=== PATIENT | female | born 1945 | race Caucasian/White ===

== ENCOUNTER 2020-03-06 14:46 | Observation (INO) ==
[2020-03-06] MEDS ORDERED: SODIUM CHLORIDE 0.9% 1,000 ML IV STA (15:19)
[2020-03-06 15:40] LABS: Basophils % 0.3 % (0.0-0.8); Eosinophils # 0.2 10*3/uL (0.0-0.87); Eosinophils % 2.4 % (0.00-10.9); Hemoglobin 12.3 GM/DL (12.0-16.0); Immature Granulocytes % 0.5 %; Immature Granulocytes Absolute 0.04 #; Lymphocytes # 1.1 10*3/uL (1.4-4.0); Lymphocytes % 12.2 % (21.3-54.2); Mean Corpuscular HGB Conc 32.4 GM/DL (32-36); Mean Platelet Volume 9.3 FL (9.6-12.0); Monocytes % 4.8 % (1.7-12.7); Neutrophils % 79.8 % (38.7-73.9); Platelet Count 332 T/CUMM (130-400); Red Blood Count 4.27 MC/CUMM (3.8-5.5); Red Cell Distribution Width 15.8 % (9.3-17.3); White Blood Count 8.9 T/CUMM (4-12)
[2020-03-06 16:10] LABS: Alanine Aminotransferase 9 U/L (13-56); Albumin 2.8 G/DL (3.4-5.0); Alkaline Phosphatase 100 U/L (45-117); Aspartate Amino Transferase 23 U/L (0-37); Bilirubin,Total < 0.39 MG/DL (0.2-1.0); Blood Urea Nitrogen 22 MG/DL (7-18); Calcium 8.6 MG/DL (8.5-10.1); Estimated Glom Filtration Rate 0 ML/MIN; Glucose 99 MG/DL (74-106); Osmolality,Calculated 279.5 MOS/KG (273-304); Total Protein 6.2 G/DL (6.4-8.3)
[2020-03-06] MEDS ORDERED: POTASSIUM CHLORIDE 20 MEQ TABLET PO STA (16:20)
[2020-03-06 16:21] LABS: Bilirubin,Urine Negative (Negative); Blood, Urine Moderate mg/dL (Negative); Glucose,Urine (UA) Negative (Negative); Ketones,Urine Negative (Negative); Mucus,Urine Occasional /LPF (Occasional); Nitrite,Urine Negative (Negative); Protein,Urine Negative; RBC,Urine 54 /HPF (0-4); Urine Appearance CLEAR (Clear); Urine Color Yellow (Yellow); Urine Specific Gravity 1.011 (1.001-1.035); Urine Urobilinogen < 2.0 EU/DL (0.2-1.0); WBC,Urine 2 /HPF (0-6)
[2020-03-06 18:05] LABS: Barbiturates Screen,Urine Negative (Negative); Benzodiazepines Screen,Urine Negative (Negative); Cannabinoid Screen,Urine Negative (Negative); Opiate Screen,Urine Positive (Negative); Phencyclidine Screen,Urine Negative (Negative)
[2020-03-06 18:07] LABS: Alcohol Patient Result Negative (Negative)
[2020-03-06 18:25] LABS: Creatinine Ur Quant Random 57 MG/DL; Microalbum Ur Quant Random 18.5 MG/L (0-20); Microalbum/Creat Ratio Random 32.5 RATIO (0-30); Potassium,Urine Random 8 MMOL/L
[2020-03-06 18:30] LABS: Calcium,Urine Random < 5 MG/DL
[2020-03-06] MEDS: PANTOPRAZOLE 40 MG TABLET PO SCH (20:49)
[2020-03-06] MEDS: oxyCODONE/ACETAMINOPHEN 5-325 MG TABLET PO PRN (20:49)
[2020-03-06] MEDS: SODIUM CHLORIDE 23.4% CONC INJ 38.5 MEQ, SODIUM BICARB INJ 50 MEQ in STERILE WATER INJ ... IV SCH (20:50)
[2020-03-06] MEDS: MEGESTROL 400 MG/10 ML UDCUP PO SCH (20:51)
[2020-03-07] MEDS: ONDANSETRON 4 MG TABLET PO PRN (02:34)
[2020-03-07] MEDS: oxyCODONE/ACETAMINOPHEN 5-325 MG TABLET PO PRN ×4 (03:28→20:51)
[2020-03-07 06:20] LABS: Alanine Aminotransferase < 6 U/L (13-56); Albumin 2.6 G/DL (3.4-5.0); Alkaline Phosphatase 104 U/L (45-117); Aspartate Amino Transferase 34 U/L (0-37); Bilirubin,Total < 0.39 MG/DL (0.2-1.0); Blood Urea Nitrogen 19 MG/DL (7-18); Calcium 8.4 MG/DL (8.5-10.1); Estimated Glom Filtration Rate 17 ML/MIN; Glucose 104 MG/DL (74-106); Osmolality,Calculated 278.5 MOS/KG (273-304); Total Protein 7.1 G/DL (6.4-8.3)
[2020-03-07 06:28] LABS: Basophils % 0.2 % (0.0-0.8); Eosinophils # 0.3 10*3/uL (0.0-0.87); Eosinophils % 3.5 % (0.00-10.9); Hematocrit 39.8 VOL% (35.7-47.0); Immature Granulocytes % 0.3 %; Immature Granulocytes Absolute 0.03 #; Lymphocytes # 1.1 10*3/uL (1.4-4.0); Lymphocytes % 12.8 % (21.3-54.2); Mean Corpuscular HGB Conc 32.7 GM/DL (32-36); Mean Corpuscular Volume 88.8 FL (87-102); Mean Platelet Volume 10.1 FL (9.6-12.0); Monocytes % 5.3 % (1.7-12.7); Neutrophils % 77.9 % (38.7-73.9); Platelet Count 305 T/CUMM (130-400); Red Blood Count 4.48 MC/CUMM (3.8-5.5); Red Cell Distribution Width 15.8 % (9.3-17.3); White Blood Count 8.7 T/CUMM (4-12)
[2020-03-07 06:44] LABS: Hypochromasia Slight; Platelet Estimate Normal
[2020-03-07] MEDS: MEGESTROL 400 MG/10 ML UDCUP PO SCH ×2 (08:18→20:51)
[2020-03-07] MEDS: DOCUSATE SODIUM 100 MG CAPSULE PO SCH (08:18)
[2020-03-07] MEDS: PANTOPRAZOLE 40 MG TABLET PO SCH ×2 (08:18→20:51)
[2020-03-07] MEDS: SERTRALINE 100 MG TABLET PO SCH (08:18)
[2020-03-07] MEDS: SODIUM CHLORIDE 23.4% CONC INJ 38.5 MEQ, SODIUM BICARB INJ 50 MEQ in STERILE WATER INJ ... IV SCH (09:47)
[2020-03-07] MEDS: TAMSULOSIN 0.4 MG CAPSULE PO SCH ×2 (12:35→20:51)
[2020-03-07] MEDS: ZOLPIDEM 5 MG TABLET PO PRN (20:52)
[2020-03-07] MEDS ORDERED: TAMSULOSIN 0.4 MG CAPSULE PO SCH (21:00)
[2020-03-08] MEDS: SODIUM CHLORIDE 23.4% CONC INJ 38.5 MEQ, SODIUM BICARB INJ 50 MEQ in STERILE WATER INJ ... IV SCH (02:47)
[2020-03-08] MEDS: oxyCODONE/ACETAMINOPHEN 5-325 MG TABLET PO PRN ×3 (05:02→17:14)
[2020-03-08 05:18] LABS: Basophils % 0.1 % (0.0-0.8); Eosinophils # 0.2 10*3/uL (0.0-0.87); Eosinophils % 2.3 % (0.00-10.9); Hematocrit 34.9 VOL% (35.7-47.0); Hemoglobin 11.4 GM/DL (12.0-16.0); Immature Granulocytes % 0.4 %; Immature Granulocytes Absolute 0.03 #; Lymphocytes # 0.9 10*3/uL (1.4-4.0); Lymphocytes % 11.6 % (21.3-54.2); Mean Corpuscular HGB Conc 32.7 GM/DL (32-36); Mean Corpuscular Volume 86.6 FL (87-102); Mean Platelet Volume 9.3 FL (9.6-12.0); Monocytes % 6.4 % (1.7-12.7); Neutrophils % 79.2 % (38.7-73.9); Platelet Count 226 T/CUMM (130-400); Red Blood Count 4.03 MC/CUMM (3.8-5.5); Red Cell Distribution Width 15.3 % (9.3-17.3); White Blood Count 7.8 T/CUMM (4-12)
[2020-03-08 06:02] LABS: Alanine Aminotransferase < 6 U/L (13-56); Albumin 2.6 G/DL (3.4-5.0); Alkaline Phosphatase 101 U/L (45-117); Aspartate Amino Transferase 20 U/L (0-37); Bilirubin,Total < 0.39 MG/DL (0.2-1.0); Blood Urea Nitrogen 10 MG/DL (7-18); Calcium 8.4 MG/DL (8.5-10.1); Estimated Glom Filtration Rate 23 ML/MIN; Glucose 93 MG/DL (74-106); Osmolality,Calculated 284.8 MOS/KG (273-304); Total Protein 6.5 G/DL (6.4-8.3)
[2020-03-08] MEDS: PANTOPRAZOLE 40 MG TABLET PO SCH ×2 (08:35→21:33)
[2020-03-08] MEDS: MULTIVITAMIN (CENTRUM) TABLET PO SCH (08:35)
[2020-03-08] MEDS: DOCUSATE SODIUM 100 MG CAPSULE PO SCH (08:35)
[2020-03-08] MEDS: MEGESTROL 400 MG/10 ML UDCUP PO SCH ×2 (08:35→21:33)
[2020-03-08] MEDS: TAMSULOSIN 0.4 MG CAPSULE PO SCH ×2 (08:35→21:33)
[2020-03-08] MEDS: SERTRALINE 100 MG TABLET PO SCH (08:35)
[2020-03-08] MEDS ORDERED: POTASSIUM CHLORIDE 20 MEQ TABLET PO SCH (09:00)
[2020-03-08] MEDS ORDERED: SODIUM PHOSPHATE INJ 30 MMOL in SODIUM CHLORIDE 0.9% 250 ML IV ONE (10:00)
[2020-03-08] MEDS ORDERED: POTASSIUM CHLORIDE RIDER 10 MEQ in PREMIX 1 EACH IV PRN (10:42)
[2020-03-08] MEDS: ONDANSETRON 4 MG TABLET PO PRN (11:24)
[2020-03-08] MEDS ORDERED: POTASSIUM BICARB EFFERVESCENT 25 MEQ TABLET PO ONE (13:24)
[2020-03-08] MEDS: SODIUM CHLOR 0.9% KCL 40 MEQ 40 MEQ/1,000 ML BAG IV SCH (14:37)
[2020-03-08] MEDS: ZOLPIDEM 5 MG TABLET PO PRN (21:33)
[2020-03-09] MEDS: SODIUM CHLOR 0.9% KCL 40 MEQ 40 MEQ/1,000 ML BAG IV SCH (04:39)
[2020-03-09 05:43] LABS: Basophils % 0.3 % (0.0-0.8); Eosinophils # 0.1 10*3/uL (0.0-0.87); Eosinophils % 1.9 % (0.00-10.9); Hematocrit 35.1 VOL% (35.7-47.0); Hemoglobin 11.5 GM/DL (12.0-16.0); Immature Granulocytes % 0.8 %; Immature Granulocytes Absolute 0.05 #; Lymphocytes # 0.8 10*3/uL (1.4-4.0); Lymphocytes % 12.2 % (21.3-54.2); Mean Corpuscular HGB Conc 32.8 GM/DL (32-36); Mean Corpuscular Volume 87.8 FL (87-102); Mean Platelet Volume 9.3 FL (9.6-12.0); Monocytes % 8.2 % (1.7-12.7); Neutrophils % 76.6 % (38.7-73.9); Platelet Count 204 T/CUMM (130-400); Red Cell Distribution Width 15.8 % (9.3-17.3); White Blood Count 6.5 T/CUMM (4-12)
[2020-03-09 06:42] LABS: Alanine Aminotransferase < 6 U/L (13-56); Albumin 2.5 G/DL (3.4-5.0); Alkaline Phosphatase 97 U/L (45-117); Aspartate Amino Transferase 18 U/L (0-37); Blood Urea Nitrogen 8 MG/DL (7-18); Calcium 8.1 MG/DL (8.5-10.1); Estimated Glom Filtration Rate 30 ML/MIN; Glucose 90 MG/DL (74-106); Osmolality,Calculated 285.7 MOS/KG (273-304); Total Protein 6.4 G/DL (6.4-8.3)
[2020-03-09] MEDS ORDERED: POTASSIUM CHLORIDE 20 MEQ TABLET PO ONE (07:04)
[2020-03-09] MEDS ORDERED: oxyCODONE/ACETAMINOPHEN 5-325 MG TABLET PO PRN (07:15)
[2020-03-09] MEDS ORDERED: POTASSIUM PHOS/SOD PHOS 250 MG TABLET PO SCH (08:00)
[2020-03-09] MEDS ORDERED: SODIUM PHOSPHATE ENEMA 133 ML BOTTLE RECTAL ONE ×2 (08:44→09:15)
[2020-03-09] MEDS ORDERED: BETHANECHOL 10 MG TABLET PO SCH (09:00)
[2020-03-09] MEDS ORDERED: amLODIPine 5 MG TABLET PO SCH (09:00)
[2020-03-09 09:11] LABS: Bacteria,Urine Moderate /HPF (Few); Bilirubin,Urine Negative (Negative); Blood, Urine Small mg/dL (Negative); Glucose,Urine (UA) Negative (Negative); Ketones,Urine Negative (Negative); Mucus,Urine Occasional /LPF (Occasional); Nitrite,Urine Negative (Negative); Protein,Urine Negative; RBC,Urine 1 /HPF (0-4); Squamous Epithelial Cell,Urine Occasional /HPF (0-10); Urine Appearance CLEAR (Clear); Urine Color Colorless (Yellow); Urine Specific Gravity 1.005 (1.001-1.035); Urine Urobilinogen < 2.0 EU/DL (0.2-1.0); WBC,Urine 2 /HPF (0-6)
[2020-03-09] MEDS ORDERED: MAGNESIUM HYDROXIDE SUSP 30 ML UDCUP PO ONE (09:13)
[2020-03-09] MEDS: MEGESTROL 400 MG/10 ML UDCUP PO SCH (09:55)
[2020-03-09] MEDS: TAMSULOSIN 0.4 MG CAPSULE PO SCH (09:55)
[2020-03-09] MEDS: MULTIVITAMIN (CENTRUM) TABLET PO SCH (09:55)
[2020-03-09] MEDS: DOCUSATE SODIUM 100 MG CAPSULE PO SCH (09:55)
[2020-03-09] MEDS: SERTRALINE 100 MG TABLET PO SCH (09:55)
[2020-03-09] MEDS: PANTOPRAZOLE 40 MG TABLET PO SCH (09:55)
[2020-03-09] MEDS ORDERED: SUMAtriptan 6 MG/0.5 ML VIAL SUBCUT ONE (10:22)
[2020-03-09 11:58] VITALS: BP 144/80
== END 2020-03-09 15:17 | disposition home health service (06) ==
LOC: EDBD → EDUNIT# → N.ED 14:46 → N.EDINP 14:46 → N.TELEN 18:40
PROVIDERS: ADMIT Internal Medicine; ATTEND Internal Medicine

== ENCOUNTER 2021-04-07 23:35 | Observation (INO) ==
[2021-04-08] MEDS ORDERED: SODIUM CHLORIDE 0.9% 1,000 ML IV STA (01:40)
[2021-04-08 02:56] LABS: Basophils % 0.3 % (0.0-0.8); Eosinophils # 0.2 10*3/uL (0.0-0.87); Hematocrit 36.8 VOL% (35.7-47.0); Hemoglobin 11.4 GM/DL (12.0-16.0); Immature Granulocytes % 0.3 %; Immature Granulocytes Absolute 0.02 #; Mean Corpuscular Volume 92.9 FL (87-102); Mean Platelet Volume 10.2 FL (9.6-12.0); Monocytes % 8.2 % (1.7-12.7); Neutrophils % 57.2 % (38.7-73.9); Platelet Count 220 T/CUMM (130-400); Red Blood Count 3.96 MC/CUMM (3.8-5.5); Red Cell Distribution Width 14.2 % (9.3-17.3); White Blood Count 6.3 T/CUMM (4-12)
[2021-04-08 03:12] LABS: Acetaminophen 2.4 UG/ML (10-30); Salicylate < 2.8 MG/DL (2.8-20)
[2021-04-08 03:16] LABS: Alanine Aminotransferase < 6 U/L (13-56); Albumin 3.5 G/DL (3.4-5.0); Alkaline Phosphatase 69 U/L (45-117); Aspartate Amino Transferase 13 U/L (0-37); Bilirubin,Total < 0.39 MG/DL (0.20-1.00); Blood Urea Nitrogen 33 MG/DL (7-18); Calcium 8.9 MG/DL (8.5-10.1); Carbon Dioxide 24 MMOL/L (21-32); Estimated Glom Filtration Rate 15 ML/MIN; Glucose 110 MG/DL (74-106); Osmolality,Calculated 282.7 MOS/KG (273-304); Potassium 3.9 MMOL/L (3.5-5.1); Sodium 138 MMOL/L (136-145); Total Protein 6.7 G/DL (6.4-8.2)
[2021-04-08] MEDS ORDERED: ACETAMINOPHEN 325 MG TABLET PO ONE (04:01)
[2021-04-08] MEDS ORDERED: ACETAMINOPHEN 325 MG TABLET PO PRN (04:07)
[2021-04-08] MEDS ORDERED: ONDANSETRON 4 MG/2 ML VIAL IV PRN (04:07)
[2021-04-08] MEDS ORDERED: ENOXAPARIN 30 MG/0.3 ML SYRINGE SUBCUT SCH (05:00)
[2021-04-08 06:51] LABS: Barbiturates Screen,Urine Negative (Negative); Benzodiazepines Screen,Urine Negative (Negative); Bilirubin,Urine Negative (Negative); Blood, Urine Moderate mg/dL (Negative); Cannabinoid Screen,Urine Negative (Negative); Glucose,Urine (UA) Negative (Negative); Hyaline Casts,Urine 1 /LPF (0-3); Ketones,Urine Negative (Negative); Mucus,Urine Occasional /LPF (Occasional); Nitrite,Urine Negative (Negative); Opiate Screen,Urine Positive (Negative); Phencyclidine Screen,Urine Negative (Negative); Protein,Urine Negative; RBC,Urine 22 /HPF (0-4); Squamous Epithelial Cell,Urine Occasional /HPF (0-10); Urine Appearance Slightly Hazy (Clear); Urine Color Yellow (Yellow); Urine Specific Gravity 1.009 (1.001-1.035); Urine Urobilinogen < 2.0 EU/DL (<2.0)
[2021-04-08] MEDS: ENOXAPARIN 30 MG/0.3 ML SYRINGE SUBCUT SCH (08:50)
[2021-04-08] MEDS ORDERED: PANTOPRAZOLE 40 MG TABLET PO SCH (09:00)
[2021-04-08] MEDS ORDERED: DOCUSATE SODIUM 100 MG CAPSULE PO PRN (11:04)
[2021-04-08] MEDS ORDERED: QUEtiapine 25 MG TABLET PO SCH ×3 (11:30→21:00)
[2021-04-08] MEDS: oxyCODONE/ACETAMINOPHEN 5-325 MG TABLET PO PRN ×2 (12:09→20:11)
[2021-04-08] MEDS: ERYTHROMYCIN 0.5% OPHT OINT 3.5 GM TUBE RIGHT EYE SCH ×7 (12:10→23:45)
[2021-04-08] MEDS ORDERED: hydrALAZINE 20 MG/1 ML VIAL IV PRN (16:15)
[2021-04-08] MEDS ORDERED: HALOPERIDOL 5 MG/ML AMP IM ONE (16:18)
[2021-04-08] MEDS: PANTOPRAZOLE 40 MG TABLET PO SCH (16:35)
[2021-04-08] MEDS ORDERED: ZALEPLON 5 MG CAPSULE PO PRN (18:24)
[2021-04-08] MEDS ORDERED: LORazepam 2 MG/1 ML VIAL IV PRN (21:50)
[2021-04-09] MEDS: ERYTHROMYCIN 0.5% OPHT OINT 3.5 GM TUBE RIGHT EYE SCH ×8 (01:16→14:58)
[2021-04-09] MEDS: oxyCODONE/ACETAMINOPHEN 5-325 MG TABLET PO PRN ×2 (01:56→13:51)
[2021-04-09 05:50] LABS: Calcium 9.1 MG/DL (8.5-10.1); Osmolality,Calculated 292.6 MOS/KG (273-304); Potassium 3.9 MMOL/L (3.5-5.1)
[2021-04-09] MEDS: ENOXAPARIN 30 MG/0.3 ML SYRINGE SUBCUT SCH (08:28)
[2021-04-09] MEDS: PANTOPRAZOLE 40 MG TABLET PO SCH (08:28)
[2021-04-09] MEDS ORDERED: SERTRALINE 100 MG TABLET PO SCH (09:00)
[2021-04-09] MEDS ORDERED: QUEtiapine 25 MG TABLET PO SCH (09:00)
[2021-04-09] MEDS ORDERED: SODIUM CHLORIDE 0.9% 1,000 ML IV SCH (12:00)
[2021-04-09 12:38] VITALS: BP 135/72
== END 2021-04-09 16:35 ==
LOC: N.EDINP 23:35 → N.ED 23:35 → N.EDINP 04-08 05:40 → N.3E 04-08 06:59 → SUATTDRO 04-08 12:41
PROVIDERS: ADMIT Internal Medicine; ATTEND Internal Medicine

== ENCOUNTER 2021-04-15 09:06 | Inpatient (IN) ==
[2021-04-15] MEDS ORDERED: SODIUM CHLORIDE 0.9% 1,000 ML IV STA (09:45)
[2021-04-15 10:57] LABS: Basophils % 0.3 % (0.0-0.8); Eosinophils # 0.1 10*3/uL (0.0-0.87); Eosinophils % 0.9 % (0.00-10.9); Hematocrit 49.7 VOL% (35.7-47.0); Hemoglobin 15.4 GM/DL (12.0-16.0); Immature Granulocytes % 0.3 %; Immature Granulocytes Absolute 0.03 #; Lymphocytes # 1.2 10*3/uL (1.4-4.0); Lymphocytes % 12.9 % (21.3-54.2); Mean Corpuscular Volume 91.4 FL (87-102); Mean Platelet Volume 9.8 FL (9.6-12.0); Monocytes % 4.2 % (1.7-12.7); Neutrophils % 81.4 % (38.7-73.9); Platelet Count 294 T/CUMM (130-400); Red Blood Count 5.44 MC/CUMM (3.8-5.5); Red Cell Distribution Width 14.3 % (9.3-17.3); White Blood Count 8.9 T/CUMM (4-12)
[2021-04-15 11:21] LABS: Alanine Aminotransferase 13 U/L (13-56); Albumin 4.3 G/DL (3.4-5.0); Alkaline Phosphatase 79 U/L (45-117); Aspartate Amino Transferase 22 U/L (0-37); Bilirubin,Total < 0.39 MG/DL (0.20-1.00); Blood Urea Nitrogen 28 MG/DL (7-18); Calcium 10.3 MG/DL (8.5-10.1); Carbon Dioxide 24 MMOL/L (21-32); Estimated Glom Filtration Rate 23 ML/MIN; Glucose 107 MG/DL (74-106); Osmolality,Calculated 297.4 MOS/KG (273-304); Potassium 3.7 MMOL/L (3.5-5.1); Sodium 147 MMOL/L (136-145); Total Protein 9.1 G/DL (6.4-8.2)
[2021-04-15 11:58] LABS: Bilirubin,Urine Negative (Negative); Blood, Urine Large mg/dL (Negative); Glucose,Urine (UA) Negative (Negative); Ketones,Urine Negative (Negative); Mucus,Urine Occasional /LPF (Occasional); Nitrite,Urine Negative (Negative); Protein,Urine 30 MG/DL; RBC,Urine 283 /HPF (0-4); Urine Appearance CLEAR (Clear); Urine Color Yellow (Yellow); Urine Specific Gravity 1.011 (1.001-1.035); Urine Urobilinogen < 2.0 EU/DL (<2.0)
[2021-04-15 12:43] LABS: Barbiturates Screen,Urine Negative (Negative); Benzodiazepines Screen,Urine Negative (Negative); Cannabinoid Screen,Urine Negative (Negative); Opiate Screen,Urine Negative (Negative); Phencyclidine Screen,Urine Negative (Negative)
[2021-04-15] MEDS ORDERED: GLUCAGON 1 MG VIAL IM PRN (13:18)
[2021-04-15] MEDS ORDERED: DEXTROSE 50% 25 GM/50 ML SYRINGE IV PRN (13:18)
[2021-04-15] MEDS: ENOXAPARIN 30 MG/0.3 ML SYRINGE SUBCUT SCH (14:25)
[2021-04-15] MEDS: DEXTROSE 5% 1,000 ML IV SCH (14:30)
[2021-04-15 14:42] LABS: Thyroid Stimulating Hormone 1.42 uIU/ml (0.358-3.74)
[2021-04-15] MEDS: hydrALAZINE 20 MG/1 ML VIAL IV PRN (21:13)
[2021-04-16] MEDS: DEXTROSE 5% 1,000 ML IV SCH ×2 (04:01→14:33)
[2021-04-16 06:37] LABS: Calcium 9.9 MG/DL (8.5-10.1); Osmolality,Calculated 291.6 MOS/KG (273-304); Potassium 3.2 MMOL/L (3.5-5.1)
[2021-04-16] MEDS ORDERED: POTASSIUM CHLORIDE RIDER 10 MEQ/100 ML PREMIX IV PRN (08:31)
[2021-04-16] MEDS: PANTOPRAZOLE 40 MG VIAL IV SCH (08:35)
[2021-04-16] MEDS ORDERED: NON-FORMULARY MEDICATION (Oxycodone-Acetaminophen [Percocet] 10-325 mg Tablet) PO PRN (11:44)
[2021-04-16] MEDS ORDERED: DOCUSATE SODIUM 100 MG CAPSULE PO PRN (12:01)
[2021-04-16] MEDS: MEMANTINE 5 MG TABLET PO SCH ×2 (12:17→20:21)
[2021-04-16] MEDS: SERTRALINE 100 MG TABLET PO SCH (12:17)
[2021-04-16] MEDS: RIVASTIGMINE 4.6 MG/24 HR PATCH TRANSDERM SCH (12:17)
[2021-04-16] MEDS: BACLOFEN 10 MG TABLET PO SCH ×2 (14:34→20:21)
[2021-04-16] MEDS: QUEtiapine 25 MG TABLET PO SCH (20:21)
[2021-04-16] MEDS: ENOXAPARIN 30 MG/0.3 ML SYRINGE SUBCUT SCH (20:21)
[2021-04-17 05:04] LABS: Basophils % 0.2 % (0.0-0.8); Eosinophils # 0.2 10*3/uL (0.0-0.87); Eosinophils % 1.9 % (0.00-10.9); Hematocrit 42.1 VOL% (35.7-47.0); Hemoglobin 13.1 GM/DL (12.0-16.0); Immature Granulocytes % 0.4 %; Immature Granulocytes Absolute 0.05 #; Lymphocytes # 1.6 10*3/uL (1.4-4.0); Lymphocytes % 13.5 % (21.3-54.2); Mean Corpuscular HGB Conc 31.1 GM/DL (32-36); Monocytes % 6.2 % (1.7-12.7); Neutrophils % 77.8 % (38.7-73.9); Platelet Count 284 T/CUMM (130-400); Red Blood Count 4.48 MC/CUMM (3.8-5.5); Red Cell Distribution Width 14.1 % (9.3-17.3); White Blood Count 11.8 T/CUMM (4-12)
[2021-04-17 05:20] LABS: Calcium 9.7 MG/DL (8.5-10.1); Osmolality,Calculated 287.8 MOS/KG (273-304); Potassium 3.5 MMOL/L (3.5-5.1)
[2021-04-17] MEDS: DEXTROSE 5% 1,000 ML IV SCH ×2 (07:26→16:36)
[2021-04-17] MEDS: MEGESTROL 40 MG TABLET PO SCH ×2 (09:22→21:15)
[2021-04-17] MEDS: MEMANTINE 5 MG TABLET PO SCH ×2 (09:22→21:14)
[2021-04-17] MEDS: BACLOFEN 10 MG TABLET PO SCH ×3 (09:22→21:14)
[2021-04-17] MEDS: SERTRALINE 100 MG TABLET PO SCH (09:22)
[2021-04-17] MEDS: PANTOPRAZOLE 40 MG VIAL IV SCH (09:26)
[2021-04-17] MEDS: RIVASTIGMINE 4.6 MG/24 HR PATCH TRANSDERM SCH (09:30)
[2021-04-17] MEDS: QUEtiapine 25 MG TABLET PO SCH (21:14)
[2021-04-17] MEDS: ENOXAPARIN 30 MG/0.3 ML SYRINGE SUBCUT SCH (21:15)
[2021-04-17] MEDS: ONDANSETRON 4 MG TABLET PO PRN (21:28)
[2021-04-18] MEDS: ACETAMINOPHEN 500 MG TABLET PO PRN ×2 (02:15→15:19)
[2021-04-18] MEDS: DEXTROSE 5% 1,000 ML IV SCH ×3 (02:18→22:12)
[2021-04-18 06:20] LABS: Basophils % 0.1 % (0.0-0.8); Eosinophils # 0.2 10*3/uL (0.0-0.87); Eosinophils % 1.7 % (0.00-10.9); Hematocrit 38.7 VOL% (35.7-47.0); Hemoglobin 12.5 GM/DL (12.0-16.0); Immature Granulocytes % 0.4 %; Immature Granulocytes Absolute 0.04 #; Lymphocytes # 1.2 10*3/uL (1.4-4.0); Lymphocytes % 11.8 % (21.3-54.2); Mean Corpuscular HGB Conc 32.3 GM/DL (32-36); Mean Corpuscular Volume 91.7 FL (87-102); Monocytes % 6.8 % (1.7-12.7); Neutrophils % 79.2 % (38.7-73.9); Platelet Count 216 T/CUMM (130-400); Red Blood Count 4.22 MC/CUMM (3.8-5.5); Red Cell Distribution Width 13.9 % (9.3-17.3); White Blood Count 9.9 T/CUMM (4-12)
[2021-04-18 06:43] LABS: Calcium 9.3 MG/DL (8.5-10.1); Osmolality,Calculated 286.1 MOS/KG (273-304); Potassium 2.7 MMOL/L (3.5-5.1)
[2021-04-18] MEDS: MEGESTROL 40 MG TABLET PO SCH ×2 (09:54→22:04)
[2021-04-18] MEDS: RIVASTIGMINE 4.6 MG/24 HR PATCH TRANSDERM SCH (09:54)
[2021-04-18] MEDS: BACLOFEN 10 MG TABLET PO SCH ×3 (09:54→22:05)
[2021-04-18] MEDS: POTASSIUM CHLORIDE 20 MEQ TABLET PO PRN ×3 (09:55→15:13)
[2021-04-18] MEDS: SERTRALINE 100 MG TABLET PO SCH (09:56)
[2021-04-18] MEDS: traMADol 50 MG TABLET PO PRN ×2 (09:56→18:59)
[2021-04-18] MEDS: MEMANTINE 5 MG TABLET PO SCH ×2 (09:56→22:05)
[2021-04-18] MEDS: PANTOPRAZOLE 40 MG VIAL IV SCH (10:02)
[2021-04-18] MEDS: hydrALAZINE 20 MG/1 ML VIAL IV PRN (12:21)
[2021-04-18] MEDS: ONDANSETRON 4 MG TABLET PO PRN (15:13)
[2021-04-18] MEDS: QUEtiapine 25 MG TABLET PO SCH (22:04)
[2021-04-18] MEDS: ENOXAPARIN 30 MG/0.3 ML SYRINGE SUBCUT SCH (22:05)
[2021-04-19 05:57] LABS: Calcium 9.1 MG/DL (8.5-10.1); Potassium 3.7 MMOL/L (3.5-5.1)
[2021-04-19] MEDS: DEXTROSE 5% 1,000 ML IV SCH ×2 (10:50→21:39)
[2021-04-19] MEDS: PANTOPRAZOLE 40 MG VIAL IV SCH (10:54)
[2021-04-19] MEDS: SERTRALINE 100 MG TABLET PO SCH (10:55)
[2021-04-19] MEDS: MEGESTROL 40 MG TABLET PO SCH ×2 (10:55→21:33)
[2021-04-19] MEDS: RIVASTIGMINE 4.6 MG/24 HR PATCH TRANSDERM SCH (10:55)
[2021-04-19] MEDS: BACLOFEN 10 MG TABLET PO SCH ×3 (10:56→21:36)
[2021-04-19] MEDS: MEMANTINE 5 MG TABLET PO SCH ×2 (10:56→21:34)
[2021-04-19] MEDS: ENOXAPARIN 30 MG/0.3 ML SYRINGE SUBCUT SCH (21:33)
[2021-04-19] MEDS: QUEtiapine 25 MG TABLET PO SCH (21:34)
[2021-04-19] MEDS: ACETAMINOPHEN 500 MG TABLET PO PRN (21:34)
[2021-04-20 06:56] LABS: Calcium 9.7 MG/DL (8.5-10.1); Osmolality,Calculated 285.1 MOS/KG (273-304); Potassium 3.3 MMOL/L (3.5-5.1)
[2021-04-20] MEDS: DEXTROSE 5% 1,000 ML IV SCH ×2 (07:50→13:11)
[2021-04-20] MEDS: PANTOPRAZOLE 40 MG VIAL IV SCH (09:19)
[2021-04-20] MEDS: POTASSIUM CHLORIDE 20 MEQ PACK PO ONE ×2 (09:19→10:18)
[2021-04-20] MEDS: MEMANTINE 5 MG TABLET PO SCH ×3 (09:20→20:38)
[2021-04-20] MEDS: BACLOFEN 10 MG TABLET PO SCH ×4 (09:20→20:38)
[2021-04-20] MEDS: RIVASTIGMINE 4.6 MG/24 HR PATCH TRANSDERM SCH (09:20)
[2021-04-20] MEDS: MEGESTROL 40 MG TABLET PO SCH ×3 (09:20→20:39)
[2021-04-20] MEDS: SERTRALINE 100 MG TABLET PO SCH ×2 (09:21→10:10)
[2021-04-20 11:00] LABS: Basophils % 0.1 % (0.0-0.8); Eosinophils # 0.2 10*3/uL (0.0-0.87); Eosinophils % 2.2 % (0.00-10.9); Hematocrit 38.2 VOL% (35.7-47.0); Hemoglobin 12.1 GM/DL (12.0-16.0); Immature Granulocytes % 0.6 %; Immature Granulocytes Absolute 0.04 #; Lymphocytes % 14.1 % (21.3-54.2); Mean Corpuscular HGB Conc 31.7 GM/DL (32-36); Mean Corpuscular Volume 91.6 FL (87-102); Mean Platelet Volume 9.9 FL (9.6-12.0); Platelet Count 277 T/CUMM (130-400); Red Blood Count 4.17 MC/CUMM (3.8-5.5); Red Cell Distribution Width 13.6 % (9.3-17.3); White Blood Count 7.3 T/CUMM (4-12)
[2021-04-20] MEDS: POTASSIUM CHLORIDE RIDER 10 MEQ/100 ML PREMIX IV PRN ×4 (11:53→17:06)
[2021-04-20] MEDS ORDERED: CARBOXYMETHYLCELLULOSE 1% OPH SOLN BOTH EYES PRN (11:54)
[2021-04-20] MEDS: AZITHROMYCIN 1% RIGHT EYE SCH ×2 (14:25→21:05)
[2021-04-20] MEDS: ENOXAPARIN 30 MG/0.3 ML SYRINGE SUBCUT SCH (20:38)
[2021-04-20] MEDS: ACETAMINOPHEN 500 MG TABLET PO PRN (20:38)
[2021-04-20] MEDS: QUEtiapine 25 MG TABLET PO SCH (21:05)
[2021-04-21 06:36] LABS: Basophils % 0.1 % (0.0-0.8); Eosinophils # 0.1 10*3/uL (0.0-0.87); Eosinophils % 1.1 % (0.00-10.9); Hematocrit 41.3 VOL% (35.7-47.0); Immature Granulocytes % 0.5 %; Immature Granulocytes Absolute 0.05 #; Lymphocytes % 11.1 % (21.3-54.2); Mean Corpuscular HGB Conc 31.5 GM/DL (32-36); Mean Corpuscular Volume 91.6 FL (87-102); Mean Platelet Volume 10.1 FL (9.6-12.0); Monocytes % 6.4 % (1.7-12.7); Neutrophils % 80.8 % (38.7-73.9); Platelet Count 324 T/CUMM (130-400); Red Blood Count 4.51 MC/CUMM (3.8-5.5); Red Cell Distribution Width 13.4 % (9.3-17.3); White Blood Count 9.4 T/CUMM (4-12)
[2021-04-21 06:51] LABS: Calcium 9.7 MG/DL (8.5-10.1); Osmolality,Calculated 285.3 MOS/KG (273-304); Potassium 3.4 MMOL/L (3.5-5.1)
[2021-04-21] MEDS: AZITHROMYCIN 1% RIGHT EYE SCH ×4 (07:31→22:23)
[2021-04-21] MEDS: PANTOPRAZOLE 40 MG VIAL IV SCH (08:14)
[2021-04-21] MEDS: MEMANTINE 5 MG TABLET PO SCH ×2 (08:15→20:43)
[2021-04-21] MEDS: POTASSIUM CHLORIDE 20 MEQ TABLET PO PRN ×3 (08:15→12:28)
[2021-04-21] MEDS: RIVASTIGMINE 4.6 MG/24 HR PATCH TRANSDERM SCH (08:15)
[2021-04-21] MEDS: SERTRALINE 100 MG TABLET PO SCH (08:16)
[2021-04-21] MEDS: MEGESTROL 40 MG TABLET PO SCH ×2 (08:16→20:43)
[2021-04-21] MEDS: BACLOFEN 10 MG TABLET PO SCH ×3 (08:16→20:43)
[2021-04-21] MEDS: DEXTROSE 5% 1,000 ML IV SCH ×3 (08:35→20:45)
[2021-04-21] MEDS: ENOXAPARIN 30 MG/0.3 ML SYRINGE SUBCUT SCH (20:43)
[2021-04-21] MEDS: traMADol 50 MG TABLET PO PRN (20:44)
[2021-04-21] MEDS: QUEtiapine 25 MG TABLET PO SCH (20:46)
[2021-04-22] MEDS: traMADol 50 MG TABLET PO PRN (04:09)
[2021-04-22 05:49] LABS: Basophils % 0.1 % (0.0-0.8); Eosinophils # 0.2 10*3/uL (0.0-0.87); Eosinophils % 2.8 % (0.00-10.9); Hematocrit 34.9 VOL% (35.7-47.0); Immature Granulocytes % 0.3 %; Immature Granulocytes Absolute 0.02 #; Lymphocytes # 1.6 10*3/uL (1.4-4.0); Lymphocytes % 22.4 % (21.3-54.2); Mean Corpuscular HGB Conc 31.5 GM/DL (32-36); Mean Corpuscular Volume 91.4 FL (87-102); Mean Platelet Volume 10.1 FL (9.6-12.0); Monocytes % 7.1 % (1.7-12.7); Neutrophils % 67.3 % (38.7-73.9); Platelet Count 259 T/CUMM (130-400); Red Blood Count 3.82 MC/CUMM (3.8-5.5); Red Cell Distribution Width 13.2 % (9.3-17.3); White Blood Count 7.2 T/CUMM (4-12)
[2021-04-22 06:06] LABS: Calcium 9.2 MG/DL (8.5-10.1); Osmolality,Calculated 281.4 MOS/KG (273-304); Potassium 3.8 MMOL/L (3.5-5.1)
[2021-04-22] MEDS: DEXTROSE 5% 1,000 ML IV SCH (06:45)
[2021-04-22] MEDS ORDERED: ERYTHROMYCIN 0.5% OPHT OINT 3.5 GM TUBE RIGHT EYE SCH (10:00)
[2021-04-22] MEDS ORDERED: CARBOXYMETHYLCELLULOSE 1% OPH SOLN BOTH EYES SCH (10:00)
[2021-04-22] MEDS: RIVASTIGMINE 4.6 MG/24 HR PATCH TRANSDERM SCH (10:28)
[2021-04-22] MEDS: MEMANTINE 5 MG TABLET PO SCH (10:29)
[2021-04-22] MEDS: SERTRALINE 100 MG TABLET PO SCH (10:29)
[2021-04-22] MEDS: MEGESTROL 40 MG TABLET PO SCH (10:29)
[2021-04-22] MEDS: BACLOFEN 10 MG TABLET PO SCH (10:30)
[2021-04-22 11:51] VITALS: BP 146/78
[2021-04-22] MEDS: AZITHROMYCIN 1% RIGHT EYE SCH (12:03)
[2021-04-22] MEDS: PANTOPRAZOLE 40 MG VIAL IV SCH (12:04)
[2021-04-22] MEDS ORDERED: carvediloL 6.25 MG TABLET PO SCH (17:00)
[2021-04-23] MEDS ORDERED: PANTOPRAZOLE 40 MG TABLET PO SCH (06:30)
== END 2021-04-22 12:35 | DRG 917 ==
LOC: EDBD → EDUNIT# → N.ED 09:06 → N.5E 13:18 → SUATTDRO 13:18 → N.5E 20:45
PROVIDERS: ADMIT Internal Medicine; ATTEND Internal Medicine